=== PATIENT | male | born 1985 | race Caucasian/White ===

== ENCOUNTER 2018-08-13 10:17 | Emergency (ER) | payer OTHER ==
[~2018-08-13] VITALS: Ht 167.6 cm; Wt 54.4 kg
[2018-08-13 10:19] VITALS: BP 116/89
== END 2018-08-13 11:05 | disposition home or self-care (01) ==
LOC: ER 10:17
DX: S01.01XA Laceration without foreign body of scalp, initial encounter (principal); Z86.69 Personal history of other diseases of the nervous system and sense organs; W17.89XA Other fall from one level to another, initial encounter; Y93.89 Activity, other specified; Y92.89 Other specified places as the place of occurrence of the external cause; Y99.8 Other external cause status